=== PATIENT | female | born 1970 | race African-American/Black ===

== ENCOUNTER 2016-11-14 07:08 | Emergency (ER) | payer MEDICAID ==
[~2016-11-14] VITALS: Ht 161.3 cm; Wt 82.5 kg
[2016-11-14 08:31] VITALS: BP 112/42
== END 2016-11-14 08:34 | disposition home or self-care (01) ==
LOC: EMS 07:09
DX: L02.416 Cutaneous abscess of left lower limb (principal); S60.221A Contusion of right hand, initial encounter; S60.222A Contusion of left hand, initial encounter; F17.210 Nicotine dependence, cigarettes, uncomplicated; W19.XXXA Unspecified fall, initial encounter; Y93.89 Activity, other specified; Y92.89 Other specified places as the place of occurrence of the external cause; Y99.8 Other external cause status
CPT/HCPCS: 99284; 99406

== ENCOUNTER 2018-12-08 00:36 | Emergency (ER) | payer MEDICAID ==
[~2018-12-08] VITALS: Ht 162.6 cm; Wt 70.5 kg
[2018-12-08 01:33] VITALS: BP 119/73
[2018-12-08] MEDS ORDERED: AMOX TR/POT CLAV 875 MG/125 MG TABLET PO ONE (02:15)
[2018-12-08] MEDS ORDERED: LORATADINE PO ONE (02:15)
[2018-12-08] MEDS ORDERED: OXYMETAZOLINE HCL 0.05% 15 ML NASAL SPRAY NASAL ONE (02:15)
[2018-12-08] MEDS ORDERED: [UNRECOGNIZED DRUG - OTHER] PO ONE (02:15)
[2018-12-08] MEDS ORDERED: LORazepam 1 MG TABLET PO ONE (02:15)
== END 2018-12-08 02:22 | disposition home or self-care (01) ==
LOC: EMS 00:37
DX: J01.90 Acute sinusitis, unspecified (principal); F41.9 Anxiety disorder, unspecified; F17.210 Nicotine dependence, cigarettes, uncomplicated

== ENCOUNTER 2024-07-24 10:48 | Emergency (ER) | payer MEDICAID, OTHER ==
[~2024-07-24] VITALS: Ht 160 cm; Wt 91.4 kg
[2024-07-24 10:54] VITALS: TEMP 97.9
[2024-07-24 11:07] LABS: COVID AG,FIA SOURCE NASAL SWAB
[2024-07-24 11:41] LABS: SARS-COV2 (COVID) ANTIGEN,FIA Negative (Negative)
[2024-07-24 11:43] LABS: INFLUENZA TYPE A NEGATIVE FOR TYPE A (NEGATIVE); INFLUENZA TYPE B NEGATIVE FOR TYPE B (NEGATIVE)
[2024-07-24] MEDS ORDERED: AMOX500C2 PO (12:55)
[2024-07-24] MEDS ORDERED: TRAM50TA5 PO (12:55)
[2024-07-24 13:06] VITALS: BP 128/75; PULSE 80; RESP 16; O2SAT 99
== END 2024-07-24 13:07 | disposition home or self-care (01) ==
LOC: EMS 10:52
DX: H66.41 Suppurative otitis media, unspecified, right ear (principal); F17.210 Nicotine dependence, cigarettes, uncomplicated; Z20.822 Contact with and (suspected) exposure to COVID-19
CPT/HCPCS: 87804; 99283